=== PATIENT | female | born 1955 | race Caucasian/White ===

== ENCOUNTER 2020-10-23 09:01 | Outpatient (CLI) | payer MEDICARE ==
[2020-10-23] VITALS (22 sets, daily range): BP systolic 100–138; BP diastolic 50–106; PULSE 72–96
[~2020-10-23] VITALS: Ht 160 cm; Wt 54.6 kg
[~2020-10-23 09:01] MED LIST: ACCURETIC 25 MG1 TAB PO; CINNAMON500 MG PO; DESYREL DIVIDO150 M1 PO; GLUCOPHAGE500 MG/TAB PO; JANUVIA25 MG PO; KLONOPIN 0.5MG0.5 MG PO; NATURAL ODORLE400 MG PO; NEURONTIN300 MG/CAP PO; OMEGA-3 1000 MG1 CAP PO; PRISTIQ100 MG PO; SUBOXONE 8 MG-21 TAB SL; VITAMIND3 5000 PO; [UNRECOGNIZED DRUG - OTHER]
--- NOTE | 2020-10-23 10:40 | NUR ---
DR LUKE HERE
--- NOTE | 2020-10-23 14:57 | NUR ---
Discharge istructions given to pt.Pt verbalizes understanding.INT removed,catheter tip intact.Pt escorted out via wheelchair.
== END 2020-10-23 17:23 | disposition home or self-care (01) ==
LOC: COL.RAD 09:01
DX: J93.9 Pneumothorax, unspecified (principal); R91.8 Other nonspecific abnormal finding of lung field
CPT/HCPCS: J3010

== ENCOUNTER → 2020-11-11 | Outpatient (CLI) | payer MEDICARE | LOC: COL.RAD 08:28 | DX: C34.11 Malignant neoplasm of upper lobe, right bronchus or lung (principal) | CPT/HCPCS: A9503 ==